=== PATIENT | female | born 1985 | race Hispanic/Latino ===

== ENCOUNTER 2023-09-10 09:01 | Emergency (ER) | payer BC, MEDICAID ==
[~2023-09-10] VITALS: Ht 152.4 cm; Wt 54.9 kg
[2023-09-10] MEDS ORDERED: ONDANSETRON 4MG INJ IVP ONE (09:30)
[2023-09-10] MEDS ORDERED: LACTATED RINGERS 1000ML IV ONE (09:30)
[2023-09-10 09:45] LABS: HEMATOCRIT 37.7 % (36-48); MEAN CORPUSCULAR VOLUME 70.2 fL (79-99); PLATELET COUNT (AUTO) 387 K/uL (130-400); RED BLOOD CELL COUNT(AUTO) 5.37 MIL/uL (4.00-5.50); RED CELL DISTRIBUTION WIDTH 19.9 % (11.0-15.5)
[2023-09-10 09:54] LABS: CREATININE 0.5 mg/dL (0.5-1.5); POTASSIUM 3.4 mmol/L (3.5-5.1)
[2023-09-10 10:04] LABS: ALBUMIN 3.3 g/dL (3.5-5.0); BILIRUBIN,TOTAL 0.2 mg/dL (0.2-1.0)
[2023-09-10 10:22] LABS: APPEARANCE,URINE CLEAR (CLEAR); BILIRUBIN,URINE NEGATIVE (NEGATIVE); COLOR,URINE COLORLESS (YELLOW); GLUCOSE, URINE (UA) NEGATIVE (NEGATIVE); KETONES,URINE NEGATIVE (NEGATIVE); LEUKOCYTE ESTERASE ,URINE NEGATIVE Leu/uL (NEGATIVE); NITRATE,URINE NEGATIVE (NEGATIVE); OCCULT BLOOD,URINE NEGATIVE (NEGATIVE); PROTEIN,URINE NEGATIVE (NEGATIVE); UROBILINOGEN,URINE 0.2 mg/dL (0.2-1.0)
[2023-09-10 11:33] LABS: ADD UA MICROSCOPIC NO
[2023-09-10 11:37] LABS: BAND NEUTROPHILS % (MANUAL) 1 % (0-2); BASOPHILS % (MANUAL) 1 % (0-2); LYMPHOCYTES % (MANUAL) 9 % (22-44); MAN.DIFF COMMENT-IMPRESSION MANUAL DIFFERENTIAL; MONOCYTES % (MANUAL) 2 % (2-9); PLATELET MORPHOLOGY COMMENT ADEQUATE; SEGMENTED NEUTROPHILS % 87 % (40-70); TOTAL CELLS COUNTED 100
[2023-09-10 12:26] VITALS: BP 102/64; PULSE 89; RESP 18; O2SAT 99
[2023-09-10] MEDS ORDERED: ONDA4TAB10 PO (12:33)
== END 2023-09-10 12:44 | disposition home or self-care (01) ==
LOC: EDH 09:01
DX: R11.2 Nausea with vomiting, unspecified (principal); R19.7 Diarrhea, unspecified; I48.91 Unspecified atrial fibrillation; Z90.49 Acquired absence of other specified parts of digestive tract; Z98.890 Other specified postprocedural states
CPT/HCPCS: 99284; 96374; 96361; 84484; 80053; 83880; 85025; 81003; 36415; 93005; J7120; J2405

== ENCOUNTER 2024-10-26 23:35 | Emergency (ER) | payer BC, MEDICAID ==
[~2024-10-26] VITALS: Ht 152.4 cm; Wt 61.7 kg
[~2024-10-26 23:35] MED LIST: ONDA-243 PO
[2024-10-27] MEDS ORDERED: KETO10TA2 PO (00:51)
[2024-10-27] MEDS ORDERED: AMOX1TAB16 PO (00:51)
--- NOTE | 2024-10-27 00:52 | ERN ---
General Chief Complaint: Tooth Ache/Pain Stated Complaint: TOOTHACHE Time Seen by MD: 23:36 Time Seen by Midlevel: 23:36 Source: patient History of Present Illness Initial Comments Patient is a 39-year-old female presenting to the emergency department with dental pain. Patient states this pain has been ongoing for several weeks but has progressively worsened. She was not seen a dentist for this issue because she does not have dental insurance. She reports subjective fevers at home. Denies any other symptoms at this time. Allergies: Coded Allergies: No Known Drug Allergies (Unverified Allergy, Unknown, 09/10/23) ALLERGIC TO COMBINATION DEMEROL AND PROMETHAZINE, NOT ALLERGIC TO THEM INDIVIDUALLY meperidine (Unverified Allergy, Unknown, 10/27/24) promethazine (Unverified Allergy, Unknown, 10/27/24) Home Meds Active Scripts Ketorolac Tromethamine (Ketorolac Tromethamine) 10 Mg Tablet, 1 TAB PO TID for pain for 5 Days, #15 TAB 0 Refills Prov:JOSE RAFAEL GAFFNEY 10/27/24 Amoxicillin/Potassium Clav (Amox Tr-K Clv 875-125 mg Tab) 875 Mg-125 Mg Tablet, 1 EACH PO BID for 5 Days, #10 TAB 0 Refills Prov:JOSE RAFAEL GAFFNEY 10/27/24 Ondansetron (Ondansetron Odt) 4 Mg Tab.rapdis, 4 MG PO Q6HPRN PRN for nausea, #12 TAB 0 Refills Prov:KATHY DE LEON MD 09/10/23 Past Medical History Past Medical History: Other Medical History Other: HEMOPHILLIA Past Surgical History: Cholecystectomy, BTL Female( History) LMP: Sep 28, 2024 ROS Dictation CONSTITUTIONAL: Negative except for HPI HEAD/FACE: Negative except for HPI EENT: Negative except for HPI RESPIRATORY: Negative except for HPI GASTROINTESTINAL/ABDOMINAL: Negative except for HPI GENITOURINARY: Negative except for HPI MUSCULOSKELETAL: Negative except for HPI INTEGUMENTARY: Negative except for HPI NEUROLOGICAL/PSYCH: Negative except for HPI HEMATOLOGIC/LYMPHATIC: Negative except for HPI All Systems Negative, Except as noted above. 13 point review of systems assessed and all negative except for above. Physical Exam Physical Exam Dictation PHYSICAL EXAM: GENERAL: alert,, awake oriented x 3 HEENT: Poor dentition, there are dental caries throughout the upper and lower jaw, left upper and left lower molar appear to be infected with a large dental caries, surrounding gum erythema concerning for an abscess NECK: Supple, no JVD, trachea midline LUNGS: Clear breath sounds bilaterally. No wheezes HEART: Regular rate and rhythm. Normal S1 and S2, without murmurs ABD: Abdomen soft, nontender. Bowel sounds present EXT: No clubbing or cyanosis, NEURO: Alert and oriented to person, follows commands MDM MDM: Differential diagnosis: Dental abscess, dental caries, poor dentition There are no social concerns with this patient. Prescription drug management Prescriptions will include: Augmentin and Toradol Medical management and examination interpretation discussions were had by me with other qualified healthcare professionals as indicated for the patient's care. ED Course Orders Procedure Category Date Status Time Ketorolac PHA 10/27/24 Complete Tromethamine 30mg/Ml 00:30 Ceftriaxone 1g Vial PHA 10/27/24 Complete (Rocephine 1g Inj) 00:30 Dexamethasone 4mg/Ml PHA 10/27/24 Complete 1ml Vial (Dexametha 00:30 Current Medications Medications (Trade) Dose Ordered Sig/Sujatha Route PRN Reason Start Time Stop Time Status Last Admin Dose Admin Ceftriaxone Sodium (ROCEphine 1G INJ) 1 gm ONCE ONCE IM 10/27/24 00:30 10/27/24 00:31 DC 10/27/24 01:17 Dexamethasone Sodium Phosphate (dexaMETHasone 4MG/ML 1ML VIAL) 6 mg ONCE ONCE IM 10/27/24 00:30 10/27/24 00:31 DC 10/27/24 01:16 Ketorolac Tromethamine (toRADol) 30 mg ONCE ONCE IM 10/27/24 00:30 10/27/24 00:31 DC 10/27/24 01:17 Vital Signs Date Time Temp Pulse Resp B/P (MAP) Pulse Ox O2 Delivery O2 Flow Rate FiO2 10/27/24 01:18 97.2 74 14 132/60 98 Room Air* 0 21 10/26/24 23:36 97.9 104 20 148/89 100 Room Air DX & DISP Disposition: Discharge Departure Impression: Primary Impression: Dental caries Additional Impression: Dental abscess Condition: Stable Scripts Ketorolac Tromethamine (Ketorolac Tromethamine) 10 Mg Tablet 1 TAB PO TID for pain for 5 Days, #15 TAB 0 Refills Prov: JOSE RAFAEL GAFFNEY 10/27/24 Amoxicillin/Potassium Clav (Amox Tr-K Clv 875-125 mg Tab) 875 Mg-125 Mg Tablet 1 EACH PO BID for 5 Days, #10 TAB 0 Refills Prov: JOSE RAFAEL GAFFNEY 10/27/24 Additional Instructions: It appears your left upper and left lower molar are infected. You were given antibiotics and pain medication in the emergency department. I have given you a prescription for Augmentin for outpatient. You will need to see dentist for further evaluation. Return to the ER for any new or worsening symptoms Referrals: NONE (PCP) Time of Disposition: 00:51 I have reviewed the case, and I agree with, Diagnosis and Plan I performed the substantive portion of the visit. I have reviewed and personall y made and approve the management plan that is documented in the note by myself or the KIAN. I acknowledge for responsibility for the patient's management plan. JOSE RAFAEL GAFFNEY Oct 27, 2024 00:52
[2024-10-27] MEDS: dexaMETHasone SOD PHOSPHATE 4 MG/ML 1ML VIAL IM ONE (01:16)
[2024-10-27] MEDS: cefTRIAXone 1G VIAL IM ONE (01:17)
[2024-10-27] MEDS: ketOROlac 30MG VIAL (30MG/ML) IM ONE (01:17)
[2024-10-27 01:18] VITALS: BP 132/60; PULSE 74; RESP 14; TEMP 97.2; O2SAT 98
== END 2024-10-27 01:32 | disposition home or self-care (01) ==
LOC: EDH 23:35
DX: K02.9 Dental caries, unspecified (principal); K04.7 Periapical abscess without sinus; Z88.5 Allergy status to narcotic agent; Z90.49 Acquired absence of other specified parts of digestive tract; Z98.51 Tubal ligation status
CPT/HCPCS: 99284; 96372 ×3; J1100; J1885; J0696

== ENCOUNTER 2024-11-24 19:54 | Emergency (ER) | payer MEDICAID ==
[~2024-11-24] VITALS: Ht 152.4 cm; Wt 62.6 kg
[~2024-11-24 19:54] MED LIST changes: +AMOX1TAB16 PO; +KETO10TA2 PO
[2024-11-24] MEDS ORDERED: CLIN-141 PO (20:22)
--- NOTE | 2024-11-24 20:23 | ERN ---
General Chief Complaint: Tooth Ache/Pain Stated Complaint: C/O TOOTHACHE Time Seen by MD: 19:55 Time Seen by Midlevel: 19:55 Source: patient History of Present Illness Initial Comments Patient is a 39-year-old female presenting to the emergency department with left-sided dental pain. The patient was seen in our emergency department one month ago for the same complaint. At that time she was given pain medication and prescribed oral antibiotics. She does report taking her oral antibiotics and states her symptoms improved. She did not follow up with dentist stating that she does not have health insurance. Today she reports back to the emergency department because she developed pain that is rated 6/10 to her left upper and left lower molar. Denies any fever, chills, or any other symptoms at this time. Allergies: Coded Allergies: No Known Drug Allergies (Unverified Allergy, Unknown, 09/10/23) ALLERGIC TO COMBINATION DEMEROL AND PROMETHAZINE, NOT ALLERGIC TO THEM INDIVIDUALLY meperidine (Unverified Allergy, Unknown, 10/27/24) promethazine (Unverified Allergy, Unknown, 10/27/24) Home Meds Active Scripts Ketorolac Tromethamine (Ketorolac Tromethamine) 10 Mg Tablet, 1 TAB PO TID for pain for 5 Days, #15 TAB 0 Refills Prov:JOSE RAFAEL GAFFNEY 10/27/24 Amoxicillin/Potassium Clav (Amox Tr-K Clv 875-125 mg Tab) 875 Mg-125 Mg Tablet, 1 EACH PO BID for 5 Days, #10 TAB 0 Refills Prov:JOSE RAFAEL GAFFNEY 10/27/24 Ondansetron (Ondansetron Odt) 4 Mg Tab.rapdis, 4 MG PO Q6HPRN PRN for nausea, #12 TAB 0 Refills Prov:KATHY DE LEON MD 09/10/23 Past Medical History Past Medical History: Other Medical History Other: HEMOPHILIAC Past Surgical History: None Female( History) LMP: Nov 02, 2024 ROS Dictation CONSTITUTIONAL: Negative except for HPI HEAD/FACE: Negative except for HPI EENT: Negative except for HPI RESPIRATORY: Negative except for HPI GASTROINTESTINAL/ABDOMINAL: Negative except for HPI GENITOURINARY: Negative except for HPI MUSCULOSKELETAL: Negative except for HPI INTEGUMENTARY: Negative except for HPI NEUROLOGICAL/PSYCH: Negative except for HPI HEMATOLOGIC/LYMPHATIC: Negative except for HPI All Systems Negative, Except as noted above. 13 point review of systems assessed and all negative except for above. Physical Exam Physical Exam Dictation Vital Signs reviewed General Appearance: Alert, oriented x 3, no acute distress, well developed, nourished. Head and Face: non-traumatic. Eyes: PERRL, pink conjunctivas, eyelid no trauma, anterior chamber with arcus senilis. Ears: Pinnas intact and no signs of trauma or erythema ear canals clear and no discharge TM no erythema Nose: No discharge, no bleeding. Oropharynx: Dental caries throughout, poor dentition Neck: Supple, non-tender, no thyromegaly, no masses, no JVD, no bruits Breast:Deferred Chest:No tenderness, no crepitus, no paradoxical movement, no retractions Lungs:Clear, well-ventilated, symmetric, no rales, no wheezing, no rhonchi, no stridor, good breath sounds bilaterally Heart: Regular rate, regular rhythm, no murmur, no gallops Vascular: no peripheral edema, Abdomen: Soft, positive bowel sounds, nondistended, no guarding, nontender, no rebound, no masses no hepatomegaly, no splenomegaly, no Aponte's sign, no hernias. Rectal: Deferred Genital: Deferred Neurological: Normal speech, motor function intact, sensory function intact Musculoskeletal: Neck nontender, full range of motion, back nontender, full range of motion, Extremities: nontender, full range of motion Skin: Color pink, dry, no turgor, no rash, no lacerations, no abrasions, no contusions. Lymphatic: Deferred [facility] MDM: Patient is a 39-year-old female presenting to the emergency department with left-sided dental pain. The patient was seen in our emergency department one month ago for the same complaint. At that time she was given pain medication and prescribed oral antibiotics. She does report taking her oral antibiotics and states her symptoms improved. She did not follow up with dentist stating that she does not have health insurance. Today she reports back to the emergency department because she developed pain that is rated 6/10 to her left upper and left lower molar. Denies any fever, chills, or any other symptoms at this time. On physical examination patient is in no acute distress. Initial vital signs are stable. Patient was afebrile and nontoxic appearing. She was not septic. Patient fell to follow up outpatient given that she does not have health insurance. She was given Toradol and Rocephin in the emergency de partment and will be discharged home with a prescription for clindamycin. She will need to see her dentist outpatient for further evaluation. The patient agrees with this plan and all questions have been answered Differential diagnosis: Dental abscess, dental caries, poor dentition There are no social concerns with this patient. Prescription drug management Prescriptions will include: Clindamycin Medical management and examination interpretation discussions were had by me with other qualified healthcare professionals as indicated for the patient's care. ED Course Orders Procedure Category Date Status Time Ketorolac PHA 11/24/24 Complete Tromethamine 30mg/Ml 20:00 Ceftriaxone 1g Vial PHA 11/24/24 Complete (Rocephine 1g Inj) 20:00 Current Medications Medications (Trade) Dose Ordered Sig/Sujatha Route PRN Reason Start Time Stop Time Status Last Admin Dose Admin Ceftriaxone Sodium (ROCEphine 1G INJ) 1 gm ONCE ONCE IM 11/24/24 20:00 11/24/24 20:01 DC Ketorolac Tromethamine (toRADol) 30 mg ONCE ONCE IM 11/24/24 20:00 11/24/24 20:01 DC Vital Signs Date Time Temp Pulse Resp B/P (MAP) Pulse Ox O2 Delivery O2 Flow Rate FiO2 11/24/24 19:55 99.0 77 20 131/85 100 DX & DISP Disposition: Discharge Departure Impression: Primary Impression: Dental caries Condition: Stable Scripts Ketorolac Tromethamine (Ketorolac Tromethamine) 10 Mg Tablet 1 TAB PO TID for pain for 5 Days, #15 TAB 0 Refills Prov: JOSE RAFAEL GAFFNEY 11/24/24 Clindamycin HCl (Clindamycin HCl) 300 Mg Capsule 1 CAP PO TID for 10 Days, #30 CAP 0 Refills Prov: JOSE RAFAEL GAFFNEY 11/24/24 Additional Instructions: You will need to follow up with dentist outpatient for further evaluation. Please take your antibiotics as prescribed. Referrals: NONE (PCP) Time of Disposition: 20:22 I have reviewed the case, and I agree with, Diagnosis and Plan I performed the substantive portion of the visit. I have reviewed and personally made and approve the management plan that is documented in the note by myself or the KIAN. I acknowledge for responsibility for the patient's management plan. JOSE RAFAEL GAFFNEY Nov 24, 2024 20:23
[2024-11-24 21:07] VITALS: BP 127/68; PULSE 81; RESP 18; TEMP 98.1; O2SAT 100
[2024-11-24] MEDS: cefTRIAXone 1G VIAL IM ONE (21:10)
[2024-11-24] MEDS: ketOROlac 30MG VIAL (30MG/ML) IM ONE (21:11)
== END 2024-11-24 21:31 | disposition home or self-care (01) ==
LOC: EDH 19:54
DX: K02.9 Dental caries, unspecified (principal); Z88.5 Allergy status to narcotic agent; Z79.899 Other long term (current) drug therapy
CPT/HCPCS: 99284; 96372 ×2; J1885; J0696

== ENCOUNTER 2024-12-04 12:51 | Emergency (ER) | payer MEDICAID ==
[~2024-12-04] VITALS: Ht 152.4 cm; Wt 61.2 kg
[~2024-12-04 12:51] MED LIST changes: +CLIN-141 PO
--- NOTE | 2024-12-04 13:31 | EKG ---
Formerly [facility] Test Date: 2024-12-04 Test Time: 13:24:19 Pat Name: KIKO RANDOLPH Department: ED Room: Gender: F [employer] Server: [id number] : [id number] Requested By: ROXANA NASH Order Number: [id number] Reading MD: Bandar Nicolas Measurements Intervals [place] Rate: 73 P: 11 NC: 150 QRS: 55 QRSD: 90 T: 46 QT: 359 QTc: 395 Interpretive Statements Sinus rhythm Compared to ECG 09/10/2023 09:15:25 No significant changes Electronically Signed On 12-04-2024 18:29:16 NON DESTRUCTIVE TESTING ENGINEER by Bandar Nicolas Please click the below link to view image of tracing.
[2024-12-04 13:50] VITALS: BP 126/83; PULSE 85; RESP 20; TEMP 98.2
[2024-12-04 14:01] LABS: BASOPHILS # (AUTO) 0.09 K/uL (0.00-0.20); BASOPHILS % (AUTO) 1.2 % (0.0-5.0); EOSINOPHILS % (AUTO) 2.6 % (0.0-8.0); HEMATOCRIT 32.1 % (36-48); IMMATURE GRANULOCYTE ABSOLUTE 0.03 K/uL (0-1); LYMPHOCYTES # (AUTO) 1.7 K/uL (1.0-4.8); LYMPHOCYTES % (AUTO) 21.8 % (21.0-51.0); MEAN CORPUSCULAR HEMOGLOBIN 20.7 pg (27.0-33.0); MEAN CORPUSCULAR HGB CONC 29.6 g/dL (32.0-36.0); MEAN CORPUSCULAR VOLUME 69.9 fL (79-99); MONOCYTES # (AUTO) 0.7 K/uL (0.1-1.0); MONOCYTES % (AUTO) 8.8 % (3.0-13.0); NEUTROPHILS # (AUTO) 5.1 K/uL (1.8-7.7); NEUTROPHILS % (AUTO) 65.2 % (40.0-77.0); PLATELET COUNT (AUTO) 330 K/uL (130-400); RED BLOOD CELL COUNT(AUTO) 4.59 MIL/uL (4.00-5.50); RED CELL DISTRIBUTION WIDTH 16.9 % (11.0-15.5); WHITE BLOOD COUNT (AUTO) 7.8 K/uL (4.8-10.8)
[2024-12-04 14:07] LABS: CARBON DIOXIDE 29 mmol/L (21-32); CHLORIDE 105 mmol/L (101-111); CREATININE 0.6 mg/dL (0.5-1.0); GLOMERULAR FILTR. RATE CALC 117 mL/min (>90); GLUCOSE,RANDOM 98 mg/dL (70-105); POTASSIUM 4.5 mmol/L (3.5-5.1); SODIUM SERUM 137 mmol/L (136-145); UREA NITROGEN, BLOOD 10 mg/dL (7-18)
[2024-12-04 14:09] LABS: INR 0.95 (0.85-1.15); PROTHROMBIN TIME 10.1 SEC (9.6-11.6)
[2024-12-04 14:10] LABS: PARTIAL THROMBOPLASTIN TIME 26.8 SEC (26.3-35.5)
[2024-12-04 14:11] LABS: ALANINE AMINOTRANSFERASE 23 U/L (12-78); ALBUMIN 3.4 g/dL (3.5-5.0); ASPARTATE AMINOTRANSFERASE 13 U/L (10-37); BILIRUBIN,DIRECT < 0.1 mg/dL (0.0-0.3); BILIRUBIN,TOTAL 0.1 mg/dL (0.2-1.0); TOTAL PROTEIN, SERUM 7.3 g/dL (6.0-8.3)
--- NOTE | 2024-12-04 14:39 | NUR ---
ASSUMED CARE AT THIS TIME
[2024-12-04] MEDS: acetaMINOPHEN 500 MG TABLET PO ONE (15:22)
[2024-12-04] MEDS: 0.9%NACL 1000ML 1,000 ML IV ONE (15:22)
--- NOTE | 2024-12-04 16:18 | HMCIMG ---
US PELVIC NON-OB COMP HISTORY: Vaginal bleeding COMPARISON: None TECHNIQUE: Transabdominal pelvic ultrasound study was performed. FINDINGS: The uterus measures 9.3 x 4 x 4.9 cm. Uterus is heterogeneous. The right ovary measures 3 x 1.7 x 1.3 cm. The left ovary measures 2.2 x 2.4 x 1.3 cm. Flow is seen in both ovaries. Endometrial thickness is 9 mm. No free fluid is seen in the cul-de-sac. IMPRESSION: 1. No adnexal mass is seen.
[2024-12-04 16:45] LABS: APPEARANCE,URINE CLOUDY (CLEAR); BILIRUBIN,URINE NEGATIVE (NEGATIVE); COLOR,URINE LIGHT-BROWN (YELLOW); GLUCOSE, URINE (UA) NEGATIVE (NEGATIVE); KETONES,URINE NEGATIVE (NEGATIVE); LEUKOCYTE ESTERASE ,URINE 75 Leu/uL (NEGATIVE); NITRATE,URINE NEGATIVE (NEGATIVE); OCCULT BLOOD,URINE LARGE (NEGATIVE); PROTEIN,URINE NEGATIVE (NEGATIVE); RBC,URINE >100 /HPF (0-1); SQUAMOUS EPITHELIAL CELL,UR RARE /HPF (0-2); UNCLASSIFIED CRYSTAL 2 /HPF (None Seen); UROBILINOGEN,URINE 0.2 mg/dL (0.2-1.0); WBC,URINE 51-100 /HPF (0-1)
[2024-12-04] MEDS ORDERED: CEPH500T PO (17:10)
--- NOTE | 2024-12-04 17:10 | ERN ---
General Chief Complaint: Vaginal Problems/Bleeding Stated Complaint: EXCESSIVE VAGINAL BLEEDING, DIZZINESS Time Seen by MD: 13:20 Time Seen by Midlevel: 13:20 Source: patient History of Present Illness Initial Comments 39-year-old female who presents to the emergency department due to heavy vaginal bleeding onset yesterday. Patient states the vaginal bleeding is heavier than her usual menstrual cycles and reports clots, and saturating to breathes within the last 3 hours. Patient reports suprapubic cramping, dizziness, headache but denies any dysuria, fever, or further associated symptoms. PMHx hemophiliac, anemia Allergies: Coded Allergies: No Known Drug Allergies (Unverified Allergy, Unknown, 09/10/23) ALLERGIC TO COMBINATION DEMEROL AND PROMETHAZINE, NOT ALLERGIC TO THEM INDIVIDUALLY meperidine (Unverified Allergy, Unknown, 10/27/24) promethazine (Unverified Allergy, Unknown, 10/27/24) Home Meds Active Scripts Fluconazole (Fluconazole) 150 Mg Tablet, 150 MG PO ONCE, #1 TAB Prov:JAMA RONDON 12/04/24 Cephalexin (Cephalexin) 500 Mg Tablet, 500 MG PO BID for 7 Days, #14 TAB Prov:JAMA RONDON 12/04/24 Ketorolac Tromethamine (Ketorolac Tromethamine) 10 Mg Tablet, 1 TAB PO TID for pain for 5 Days, #15 TAB 0 Refills Prov:JOSE RAFAEL GAFFNEY 11/24/24 Clindamycin HCl (Clindamycin HCl) 300 Mg Capsule, 1 CAP PO TID for 10 Days, #30 CAP 0 Refills Prov:JOSE RAFAEL GAFFNEY 11/24/24 Ketorolac Tromethamine (Ketorolac Tromethamine) 10 Mg Tablet, 1 TAB PO TID for pain for 5 Days, #15 TAB 0 Refills Prov:JOSE RAFAEL GAFFNEY 10/27/24 Amoxicillin/Potassium Clav (Amox Tr-K Clv 875-125 mg Tab) 875 Mg-125 Mg Tablet, 1 EACH PO BID for 5 Days, #10 TAB 0 Refills Prov:JOSE RAFAEL GAFFNEY 10/27/24 Ondansetron (Ondansetron Odt) 4 Mg Tab.rapdis, 4 MG PO Q6HPRN PRN for nausea, #12 TAB 0 Refills Prov:KATHY DE LEON MD 09/10/23 Past Medical History Past Medical History: Other Medical History Other: HEMOPHILIAC Past Surgical History: None Female( History) LMP: Dec 03, 2024 ROS Dictation Constitutional: Negative for fever,chills, and weight loss Eyes: Negative for injury, pain,redness, and discharge ENT: Negative for injury,pain or swelling Cardiovascular: Negative for chest pain, palpitations, and edema Respiratory: Negative for shortness of breath, cough, and wheezing, Abdomen/GI: Positive for suprapubic pain Negative for nausea, vomiting, diarrhea, and constipation Back: Negative for injury and pain : Positive for heavy vaginal bleeding Negative for painful urination, or discharge MS/Extremity: Negative for injury and deformity Skin: Negative for rash, and discoloration Neuro: Positive for dizziness, headache Negative for weakness, numbness, tingling, and seizure Psych: Negative for suicide ideation, homicidal ideation, and hallucinations Physical Exam Physical Exam Dictation General: awake, alert, no acute distress Head/Face: Normocephalic, atraumatic Eyes: PERRL, EOMI, normal conjunctiva ENT: oral cavity clear, oral mucosa moist Neck: Supple, normal range of motion Cardiovascular: RRR, normal S1/S2 Respiratory: CTAB, no respiratory distress, no rales or wheezes Abdomen: Soft, mild suprapubic tenderness, non-distended, no guarding or rebound. Skin: Warm, dry, normal turgor, no rash MS/Extremity: Pulses equal, no cyanosis, neurovascular intact, FROM Neuro: COAx4, GCS 15, no neurological deficits, normal gait Psych: Normal behavior, mood, and affect normal Results Laboratory and Microbiology Lab and Micro Result Laboratory Tests Test 12/04/24 13:46 12/04/24 16:32 White Blood Count 7.8 K/uL (4.8-10.8) Red Blood Count 4.59 MIL/uL (4.00-5.50) Hemoglobin 9.5 g/dL (12.0-16.0) L Hematocrit 32.1 % (36-48) L Mean Corpuscular Volume 69.9 fL (79-99) L Mean Corpuscular Hemoglobin 20.7 pg (27.0-33.0) L Mean Corpuscular Hemoglobin Concent 29.6 g/dL (32.0-36.0) L Red Cell Distribution Width 16.9 % (11.0-15.5) H Platelet Count 330 K/uL (130-400) Mean Platelet Volume 10.7 fL (7.5-10.5) H Immature Granulocyte % (Auto) 0.4 % (0-1) Neutrophils (%) (Auto) 65.2 % (40.0-77.0) Lymphocytes (%) (Auto) 21.8 % (21.0-51.0) Monocytes (%) (Auto) 8.8 % (3.0-13.0) Eosinophils (%) (Auto) 2.6 % (0.0-8.0) Basophils (%) (Auto) 1.2 % (0.0-5.0) Neutrophils # (Auto) 5.1 K/uL (1.8-7.7) Lymphocytes # (Auto) 1.7 K/uL (1.0-4.8) Monocytes # (Auto) 0.7 K/uL (0.1-1.0) Eosinophils # (Auto) 0.20 K/uL (0.00-0.70) Basophils # (Auto) 0.09 K/uL (0.00-0.20) Absolute Immature Granulocyte (auto 0.03 K/uL (0-1) Nucleated Red Blood Cells 0.0 % (0.0-0.19) Red Blood Cell Morphology See comments Prothrombin Time 10.1 SEC (9.6-11.6) Prothromb Time International Ratio 0.95 (0.85-1.15) Activated Partial Thromboplast Time 26.8 SEC (26.3-35.5) Sodium Level 137 mmol/L (136-145) Potassium Level 4.5 mmol/L (3.5-5.1) Chloride Level 105 mmol/L (101-111) Carbon Dioxide Level 29 mmol/L (21-32) Blood Urea Nitrogen 10 mg/dL (7-18) Creatinine 0.6 mg/dL (0.5-1.0) Glomerular Filtration Rate Calc 117 mL/min (>90) Random Glucose 98 mg/dL (70-105) Total Calcium 8.3 mg/dL (8.5-10.1) L Total Bilirubin 0.1 mg/dL (0.2-1.0) L Direct Bilirubin < 0.1 mg/dL (0.0-0.3) Aspartate Amino Transf (AST/SGOT) 13 U/L (10-37) Alanine Aminotransferase (ALT/SGPT) 23 U/L (12-78) Alkaline Phosphatase 93 U/L (50-136) Total Protein 7.3 g/dL (6.0-8.3) Albumin 3.4 g/dL (3.5-5.0) L Serum Test, Qualitative NEGATIVE (NEGATIVE) Urine Color LIGHT-BROWN (YELLOW) Urine Appearance CLOUDY (CLEAR) H Urine pH 6.0 (5.0-8.0) Urine Specific [place] 1.008 (1.001-1.031) Urine Protein NEGATIVE mg/dL (NEGATIVE) Urine Glucose (UA) NEGATIVE mg/dL (NEGATIVE) Urine Ketones NEGATIVE mg/dL (NEGATIVE) Urine Occult Blood LARGE (NEGATIVE) H Urine Nitrate NEGATIVE (NEGATIVE) Urine Bilirubin NEGATIVE mg/dL (NEGATIVE) Urine Urobilinogen 0.2 mg/dL (0.2-1.0) Urine Leukocyte Esterase 75 [place]/uL (NEGATIVE) H Urine RBC >100 /HPF (0-1) H Urine WBC 51-100 /HPF (0-1) H Urine Squamous Epithelial Cells RARE /HPF (0-2) Urine Other Crystals (Auto) 2 /HPF (None Seen) Urine Bacteria None /HPF (None Seen) Labs Reviewed?: Yes EKG/XRAY/US/CT/MRI Ultrasound Comment REASON: vaginal bleeding ORDERING PHYSICIAN: JAMA RONDON PROCEDURE: PELVCOMP - US PELVIC NON-OB COMP US PELVIC NON-OB COMP HISTORY: Vaginal bleeding COMPARISON: None TECHNIQUE: Transabdominal pelvic ultrasound study was performed. FINDINGS: The uterus measures 9.3 x 4 x 4.9 cm. Uterus is heterogeneous. The right ovary measures 3 x 1.7 x 1.3 cm. The left ovary measures 2.2 x 2.4 x 1.3 cm. Flow is seen in both ovaries. Endometrial thickness is 9 mm. No free fluid is seen in the cul-de-sac. IMPRESSION: 1. No adnexal mass is seen. DICTATED BY: SIM ENGLE MD DATE: 12/04/24 1615 MDM MDM: Differential diagnosis: Abnormal uterine bleeding, heavy menstrual cycle, UTI, Rationale: 39-year-old female who presents to the emergency department due to heavy vaginal bleeding onset yesterday. Patient states the vaginal bleeding is heavier than her usual menstrual cycles and reports clots, and saturating to breathes within the last 3 hours. Patient reports dizziness, headache, mild suprapubic cramping but denies any dysuria, fever, or further associated symptoms. PMHx hemophiliac, anemia Labs obtained indicate anemia with hemoglobin of 9.5 otherwise labs are nonspecific. UA indicates a urinary tract infection. Pelvic ultrasound obtained indicating no adnexal masses, flow to bilateral ovaries, no acute abnormalities. Patient was administered IV fluids, acetaminophen, ceftriaxone, and morphine in the ED. Patient was educated on findings and diagnosis. Advised to follow up with PCP. Antibiotics prescribed for outpatient treatment. Patient verbalized understanding. Patient stable for discharge. ED course delayed due to patient unable to provide urine. There are no social concerns with this patient. I independently interpreted the test that were performed, results were reviewed by me and considered findings on radiology if ordered. Medical management and examination interpretation discussions were had by me with other qualified healthcare professionals as indicated for the patient's care. ED Course Orders Procedure Category Date Status Time Basic Metabolic Panel LAB 12/04/24 Complete 13:20 Cbc With Differential LAB 12/04/24 Complete 13:20 12 Lead Ekg Tracing- EKG 12/04/24 Resulted Technical 13:20 Testing, LAB 12/04/24 Complete Serum Hcg 13:20 Pt And Ptt LAB 12/04/24 Complete 13:20 Hepatic Function Panel LAB 12/04/24 Complete 13:20 Us Pelvic Non-Ob Comp US 12/04/24 Resulted 14:00 Urinalysis LAB 12/04/24 Complete W/Microscopic 14:01 0.9%Nacl 1000ml (Ns PHA 12/04/24 Complete 1000ml) 15:30 Acetaminophen 500mg PHA 12/04/24 Complete Tab (Tylenol 500mg T 15:30 Morphine 2mg Syg PHA 12/04/24 Complete (Morphine 2mg Syg) 17:00 Culture Urine JANINE 12/04/24 In Process 16:56 Ceftriaxone 1g Vial PHA 12/04/24 Complete (Rocephine 1g Inj) 17:30 Current Medications Medications (Trade) Dose Ordered Sig/Sujatha Route PRN Reason Start Time Stop Time Status Last Admin Dose Admin Acetaminophen (TYLenol 500MG TAB) 1,000 mg ONCE ONCE PO 12/04/24 15:30 12/04/24 15:31 DC 12/04/24 15:22 Ceftriaxone Sodium (ROCEphine 1G INJ) 1 gm ONCE ONCE IV 12/04/24 17:30 12/04/24 17:31 DC 12/04/24 17:25 Morphine Sulfate (morPHINE 2MG SYG) 2 mg ONCE ONCE IVP 12/04/24 17:00 12/04/24 17:01 DC 12/04/24 17:25 Sodium Chloride 1,000 ml @ 0 mls/hr ONCE ONCE IV 12/04/24 15:30 12/04/24 15:31 DC 12/04/24 15:22 Vital Signs Date Time Temp Pulse Resp B/P (MAP) Pulse Ox O2 Delivery O2 Flow Rate FiO2 12/04/24 13:50 98.2 85 20 126/83 98 Room Air DX & DISP Disposition: Discharge Departure Impression: Primary Impression: Heavy menstrual bleeding Additional Impression: Urinary catheter infection Condition: Stable Scripts Fluconazole (Fluconazole) 150 Mg Tablet 150 MG PO ONCE, #1 TAB Prov: JAMA RONDON 12/04/24 Cephalexin (Cephalexin) 500 Mg Tablet 500 MG PO BID for 7 Days, #14 TAB Prov: JAMA RONDON 12/04/24 Additional Instructions: Discharge home. Rest. Follow up with primary care DrCarmen in 24 hours. Return to the ER for any acute changes or worsening symptoms. If any medications were prescribed take as directed. Okay to continue home medications unless otherwise discussed during your visit in the emergency room today. Patient was also advised to follow-up with primary care physician in 1 to 2 days for continued monitoring. Referrals: NONE (PCP) I performed the substantive portion of the visit. I have reviewed and personally made and approve the management plan that is documented in the notes by myself or the KIAN. I acknowledge full responsibility for the patient's m anagement plan. JAMA RONDON Dec 04, 2024 17:10
[2024-12-04] MEDS ORDERED: FLUC150T48 PO (17:21)
[2024-12-04] MEDS: cefTRIAXone 1G VIAL IV ONE (17:25)
[2024-12-04] MEDS: morPHINE 2 MG SYG IVP ONE (17:25)
== END 2024-12-04 17:49 | disposition home or self-care (01) ==
LOC: EDH 12:51
DX: N92.0 Excessive and frequent menstruation with regular cycle (principal); T83.518A Infection and inflammatory reaction due to other urinary catheter, initial encounter; Z88.5 Allergy status to narcotic agent; Z79.899 Other long term (current) drug therapy; Y82.8 Other medical devices associated with adverse incidents; Y92.89 Other specified places as the place of occurrence of the external cause
CPT/HCPCS: 99285; 96374; 76856; 96361; 96375; 80076; 80048; 84703; 85025; 85610; 85730; 87086; 81001; 36415; 93005; J2270; J7030; J0696

== ENCOUNTER 2025-03-21 15:14 | Emergency (ER) | payer MEDICAID ==
[~2025-03-21] VITALS: Ht 152.4 cm; Wt 61.2 kg
[~2025-03-21 15:14] MED LIST changes: +CEPH500T PO; +FLUC150T48 PO
--- NOTE | 2025-03-21 15:31 | EKG ---
[facility] Test Date: 2025-03-21 Test Time: 15:27:20 Pat Name: KIKO RANDOLPH Department: ED Room: Gender: F [employer]: [id number] : 1985 Requested By: NICHOLE CARRASCO Order Number: [id number] Reading MD: Ramses Duvall Measurements Intervals [place] Rate: 74 P: 40 WI: 150 QRS: 43 QRSD: 91 T: 30 QT: 354 QTc: 392 Interpretive Statements Sinus rhythm Compared to ECG 12/04/2024 13:24:19 No significant changes Electronically Signed On 03-23-2025 14:41:27 CDT by Ramses Duvall Please click the below link to view image of tracing.
[2025-03-21 15:57] LABS: BASOPHILS # (AUTO) 0.11 K/uL (0.00-0.20); BASOPHILS % (AUTO) 1.5 % (0.0-5.0); EOSINOPHILS # (AUTO) 0.14 K/uL (0.00-0.70); EOSINOPHILS % (AUTO) 1.9 % (0.0-8.0); HEMATOCRIT 32.2 % (36-48); IMMATURE GRANULOCYTE ABSOLUTE 0.05 K/uL (0-1); LYMPHOCYTES # (AUTO) 1.5 K/uL (1.0-4.8); MEAN CORPUSCULAR HEMOGLOBIN 18.1 pg (27.0-33.0); MEAN CORPUSCULAR VOLUME 64.9 fL (79-99); MONOCYTES # (AUTO) 0.8 K/uL (0.1-1.0); MONOCYTES % (AUTO) 10.4 % (3.0-13.0); NEUTROPHILS # (AUTO) 4.9 K/uL (1.8-7.7); NEUTROPHILS % (AUTO) 65.5 % (40.0-77.0); PLATELET COUNT (AUTO) 390 K/uL (130-400); RED BLOOD CELL COUNT(AUTO) 4.96 MIL/uL (4.00-5.50); RED CELL DISTRIBUTION WIDTH 18.8 % (11.0-15.5); WHITE BLOOD COUNT (AUTO) 7.5 K/uL (4.8-10.8)
[2025-03-21 16:09] LABS: CREATININE 0.5 mg/dL (0.5-1.0); POTASSIUM 3.6 mmol/L (3.5-5.1)
--- NOTE | 2025-03-21 16:17 | HMCIMG ---
CHEST 1VW HISTORY: Dictation COMPARISON: None FINDINGS: A frontal projection of the chest was obtained. No acute pulmonary infiltrates is seen. The heart is borderline enlarged. Degenerative changes are seen. No evidence of aortic calcification is seen. IMPRESSION: 1. No acute pulmonary infiltrate is seen.
[2025-03-21 16:22] LABS: B-TYPE NATRIURETIC PEPTIDE < 5 pg/mL (0-100)
[2025-03-21 16:23] LABS: MAGNESIUM 1.9 mg/dL (1.80-2.40)
[2025-03-21 16:43] LABS: HCG,QUALITATIVE URINE NEGATIVE (NEGATIVE)
[2025-03-21 16:46] LABS: AMPHET/METH SCREEN,URINE NEGATIVE (NEGATIVE); BARBITURATE SCREEN, URINE NEGATIVE (NEGATIVE); BENZODIAZEPINES SCREEN,URINE NEGATIVE (NEGATIVE); CANNABINOID SCREEN,URINE NEGATIVE (NEGATIVE); COCAINE SCREEN,URINE NEGATIVE (NEGATIVE); OPIATE SCREEN,URINE NEGATIVE (NEGATIVE); PHENCYCLIDINE SCREEN,URINE NEGATIVE (NEGATIVE)
--- NOTE | 2025-03-21 17:34 | ERN ---
General Chief Complaint: Palpitations Stated Complaint: PALPITATIONS Time Seen by MD: 15:16 History of Present Illness Initial Comments 39-year-old female brought in by EMS from work for palpitations and dyspnea. Patient reports she has been in her normal state of health. She was at work and she felt a sudden episode of a racing heartbeat and dyspnea. The symptoms have improved. EMS found the patient was stable vital signs and is stable oxygen saturation. Patient reports she had atrial fibrillation five or six years ago with similar presentation. At that time she was treated medically, but she is no longer taking any medications. She denies any drug or alcohol abuse. She denies any . Denies any recent swelling. Allergies: Coded Allergies: meperidine (Unverified Allergy, Unknown, 10/27/24) promethazine (Unverified Allergy, Unknown, 10/27/24) Home Meds Active Scripts Fluconazole (Fluconazole) 150 Mg Tablet, 150 MG PO ONCE, #1 TAB Prov:JAMA RONDON 12/04/24 Cephalexin (Cephalexin) 500 Mg Tablet, 500 MG PO BID for 7 Days, #14 TAB Prov:JAMA RONDON 12/04/24 Ketorolac Tromethamine (Ketorolac Tromethamine) 10 Mg Tablet, 1 TAB PO TID for pain for 5 Days, #15 TAB 0 Refills Prov:JOSE RAFAEL GAFFNEY 11/24/24 Clindamycin HCl (Clindamycin HCl) 300 Mg Capsule, 1 CAP PO TID for 10 Days, #30 CAP 0 Refills Prov:JOSE RAFAEL GAFFNEY 11/24/24 Ketorolac Tromethamine (Ketorolac Tromethamine) 10 Mg Tablet, 1 TAB PO TID for pain for 5 Days, #15 TAB 0 Refills Prov:JOSE RAFAEL GAFFNEY 10/27/24 Amoxicillin/Potassium Clav (Amox Tr-K Clv 875-125 mg Tab) 875 Mg-125 Mg Tablet, 1 EACH PO BID for 5 Days, #10 TAB 0 Refills Prov:JOSE RAFAEL GAFFNEY 10/27/24 Ondansetron (Ondansetron Odt) 4 Mg Tab.rapdis, 4 MG PO Q6HPRN PRN for nausea, #12 TAB 0 Refills Prov:KATHY DE LEON MD 12/3/23 Past Medical History Past Medical History: Hypertension, Other Medical History Other: HEMOPHILIAC Past Surgical History: None ROS Dictation CONSTITUTIONAL: No chills, no fever, no weakness, no diaphoresis, no malaise. HEAD/FACE: No signs of trauma. EENT: No eye pain, no blurred vision, no tearing, no double vision, no ear pain, no ear discharge, no nose pain, no nasal congestion, no throat pain, no throat swelling, no mouth pain. RESPIRATORY: No cough, no orthopnea, no SOB, no stridor, no wheezing. CARDIOVASCULAR: Palpitations GASTROINTESTINAL/ABDOMINAL: No abdominal pain, no constipation, no diarrhea, no nausea, no vomiting. GENITOURINARY: No abnormal discharge, no dysuria, no frequent urination, no hematuria. No complaints of pain in the genitals. MUSCULOSKELETAL: No back pain, no gout, no joint pain, no joint swelling, no muscle pain, no muscle stiffness, no neck pain. INTEGUMENTARY: No change in color, no change in hair/nails, no dryness, no lesion, no lumps, no rash. NEUROLOGICAL/PSYCH: No anxiety, not depressed, no emotional problem, no headache, no numbness, no pre-existing deficit, no history of seizures, no tremors, no weakness. HEMATOLOGIC/LYMPHATIC: Not anemic, no history of blood clots, no apparent bleed ing, no bruising, glands not swollen. All Systems Negative, Except as Noted. Physical Exam Physical Exam Dictation VITAL SIGNS: Reviewed. GENERAL APPEARANCE: Alert, oriented x3, no acute distress. HEAD AND FACE: Non-traumatic. EYES: PERRL, pink conjunctivas, eyelid no trauma, anterior chamber clear. EARS: Pinnas intact and no signs of trauma or erythema. Ear canals clear and no discharge. TMs no erythema. NOSE: No discharge, no bleeding. OROPHARYNX: Mouth normal, teeth no caries, tongue pink. Pharynx clear, no erythema. Tonsils no exudates, no abscesses noted. Mucous membrane moist. NECK: Supple, non-tender, no thyromegaly, no masses, no JVD, no bruits. BREAST: Deferred. CHEST: No tenderness, no crepitus, no paradoxical movement, no retractions. LUNGS: Clear, well-ventilated, symmetric, no rales, no wheezing, no rhonchi, no stridor, good breath sounds bilaterally. HEART: Regular rate, regular rhythm, no murmur, no gallops. VASCULAR: No peripheral edema. ABDOMEN: Soft, positive bowel sounds, nondistended, no guarding, nontender, no rebound, no masses no hepatomegaly, no splenomegaly, no Aponte's sign, no hernias. RECTAL: Deferred. GENITAL: Deferred. NEUROLOGICAL: Normal speech, gross motor function intact, gross sensory function intact. MUSCULOSKELETAL: Neck nontender, full range of motion, back nontender, full range of motion. EXTREMITIES: Nontender, full range of motion. SKIN: Color pink, dry, no turgor, no rash, no lacerations, no abrasions, no contusions. LYMPHATICS: Deferred. Results Laboratory and Microbiology Lab and Micro Result Laboratory Tests Test 03/21/25 15:36 03/21/25 16:01 White Blood Count 7.5 K/uL (4.8-10.8) Red Blood Count 4.96 MIL/uL (4.00-5.50) Hemoglobin 9.0 g/dL (12.0-16.0) L Hematocrit 32.2 % (36-48) L Mean Corpuscular Volume 64.9 fL (79-99) L Mean Corpuscular Hemoglobin 18.1 pg (27.0-33.0) L Mean Corpuscular Hemoglobin Concent 28.0 g/dL (32.0-36.0) L Red Cell Distribution Width 18.8 % (11.0-15.5) H Platelet Count 390 K/uL (130-400) Mean Platelet Volume 10.4 fL (7.5-10.5) Immature Granulocyte % (Auto) 0.7 % (0-1) Neutrophils (%) (Auto) 65.5 % (40.0-77.0) Lymphocytes (%) (Auto) 20.0 % (21.0-51.0) L Monocytes (%) (Auto) 10.4 % (3.0-13.0) Eosinophils (%) (Auto) 1.9 % (0.0-8.0) Basophils (%) (Auto) 1.5 % (0.0-5.0) Neutrophils # (Auto) 4.9 K/uL (1.8-7.7) Lymphocytes # (Auto) 1.5 K/uL (1.0-4.8) Monocytes # (Auto) 0.8 K/uL (0.1-1.0) Eosinophils # (Auto) 0.14 K/uL (0.00-0.70) Basophils # (Auto) 0.11 K/uL (0.00-0.20) Absolute Immature Granulocyte (auto 0.05 K/uL (0-1) Nucleated Red Blood Cells 0.0 % (0.0-0.19) Red Blood Cell Morphology See comments D-Dimer Quantitative (PE/DVT) 340 ng/mL (0-500) Sodium Level 141 mmol/L (136-145) Potassium Level 3.6 mmol/L (3.5-5.1) Chloride Level 106 mmol/L (101-111) Carbon Dioxide Level 27 mmol/L (21-32) Blood Urea Nitrogen 6 mg/dL (7-18) L Creatinine 0.5 mg/dL (0.5-1.0) Glomerular Filtration Rate Calc 122 mL/min (>90) Random Glucose 69 mg/dL (70-105) L Total Calcium 8.3 mg/dL (8.5-10.1) L Magnesium Level 1.90 mg/dL (1.80-2.40) Troponin I High Sensitivity 33 ng/L (4-50) B-Type Natriuretic Peptide < 5 pg/mL (0-100) Thyroid Stimulating Hormone (TSH) 2.00 uIU/mL (0.36-3.74) Urine HCG, Qualitative NEGATIVE (NEGATIVE) Urine Opiates Screen NEGATIVE (NEGATIVE) Urine Barbiturates Screen NEGATIVE (NEGATIVE) Urine Phencyclidine Screen NEGATIVE (NEGATIVE) Urine Amphetamines Screen NEGATIVE (NEGATIVE) Urine Benzodiazepines Screen NEGATIVE (NEGATIVE) Urine Cocaine Screen NEGATIVE (NEGATIVE) Urine Marijuana (THC) Screen NEGATIVE (NEGATIVE) MDM CC: Palpitations Historian: Patient Comorbidities: History of AFib Limitations by social determinants of health: None Differential diagnosis: Arrhythmia, palpitations, anxiety, ACS, PE, other. Vital signs: Stable, remained stable in the ER EKG: Sinus rhythm, rate 74, normal axis, good R-wave progression, intervals are stable no STEMI. Labs show no leukocytosis. Microcytic anemia hemoglobin of 9. D-dimer is normal. Chemistry is normal. Troponin stable. BNP normal. TSH normal. HCG negative and tox screen negative. CXR (independently interpreted by me): No acute abnormalities focal infiltrates or cardiomegaly. Based on the patient's clinical presentation very low suspicion for any life threats. Patient is not currently in any arrhythmia or atrial fibrillation. This point in time I think the patient has a safe for discharge, we will DC recommend PCP follow up or follow up with the correctional treatment specialist. No signs of ACS, arrhythmias, electrolyte abnormalities, pulmonary embolism, or any other life threats. ED Course Orders Procedure Category Date Status Time Cbc With Differential LAB 03/21/25 Complete 15:21 B-Type Natriuretic LAB 03/21/25 Complete Peptide 15:21 D-Dimer LAB 03/21/25 Complete 15:21 Chest 1vw RAD 03/21/25 Resulted 15:21 12 Lead Ekg Tracing- EKG 03/21/25 Complete Technical 15:21 ,Urine Test LAB 03/21/25 Complete 15:21 Troponin I High LAB 03/21/25 Complete Sensitivity 15:21 Basic Metabolic Panel LAB 03/21/25 Complete 15:21 Thyroid Stimulating LAB 03/21/25 Complete Hormone 15:21 Drug Screen Urine LAB 03/21/25 Complete 15:21 Magnesium LAB 03/21/25 Complete 15:21 Vital Signs Date Time Temp Pulse Resp B/P (MAP) Pulse Ox O2 Delivery O2 Flow Rate FiO2 03/21/25 15:18 98.4 92 20 116/79 99 Room Air DX & DISP Disposition: Discharge Departure Impression: Primary Impression: Palpitations Additional Impressions: Microcytic anemia, History of atrial fibrillation Condition: Stable Additional Instructions: There are no dangerous findings or signs of atrial fibrillation on your workup here today. Your EKG is normal. Your blood work (CBC with differential, metabolic panel, TSH, troponin, D-dimer, BNP, troponin) shows microcytic anemia (hemoglobin 9.0) but is otherwise un remarkable. This is unlikely to be causing your symptoms. Your chest x-ray is normal. As we discussed, I recommend he follow up with your primary doctor or a correctional treatment specialist. I have given you a referral to Dr. Duvall at the [facility]. Call for an appointment. Please return to the emergency department as needed. Referrals: SELF,REFERRAL (PCP) NICHOLE CARRASCO DO Mar 21, 2025 17:34
[2025-03-21 17:58] VITALS: BP 122/79; PULSE 75; RESP 20; TEMP 97.9; O2SAT 98
== END 2025-03-21 17:59 | disposition home or self-care (01) ==
LOC: EDH 15:14
DX: R00.2 Palpitations (principal); D50.9 Iron deficiency anemia, unspecified; I48.91 Unspecified atrial fibrillation; I10 Essential (primary) hypertension; Z79.899 Other long term (current) drug therapy; Z88.5 Allergy status to narcotic agent
CPT/HCPCS: 36415; 71045; 80048; 80305; 81025; 83735; 83880; 84443; 84484; 85025; 85378; 93005; 99285